=== PATIENT | male | born 1995 | race Asian ===

== ENCOUNTER 2021-01-25 06:00 | Day surgery (SDC) | payer BC, SELFPAY ==
[2021-01-22 09:08] LABS: BASOPHILS % (AUTO) 0.5 % (0.0-2.0); EOSINOPHILS # (AUTO) 0.1 K/uL (0.0-0.4); HEMATOCRIT 44.5 % (36-54); LYMPHOCYTES # (AUTO) 2.8 K/uL (1.0-5.5); LYMPHOCYTES % (AUTO) 38.2 % (20.5-51.5); MEAN CORPUSCULAR HEMOGLOBIN 28 pg (27-31); MEAN CORPUSCULAR HGB CONC 34 % (32-36); MEAN CORPUSCULAR VOLUME 81 fL (79.0-98.0); MONOCYTES # (AUTO) 0.5 K/uL (0.0-1.0); NEUTROPHILS # (AUTO) 3.8 K/uL (1.8-7.7); NEUTROPHILS % (AUTO) 52.3 % (40.0-70.0); PLATELET COUNT (AUTO) 345 K/uL (130-430); RED BLOOD CELL COUNT(AUTO) 5.48 MIL/uL (4.2-6.2); RED CELL DISTRIBUTION WIDTH 13.3 % (9.0-15.0); WHITE BLOOD COUNT (AUTO) 7.2 K/uL (4.8-10.8)
[2021-01-22 09:23] LABS: CALCIUM 9.3 mg/dL (8.4-11.0); CREATININE 0.79 mg/dL (0.55-1.30); POTASSIUM 3.9 mmol/L (3.5-5.1); TOTAL BILIRUBIN 0.4 mg/dL (0.0-1.0)
[2021-01-22 09:33] LABS: INR 0.9 (0.80-1.20); PROTHROMBIN TIME 9.6 SECS (9.5-12.5)
[~2021-01-25] VITALS: Ht 182.9 cm; Wt 102.1 kg
[2021-01-25] MEDS ORDERED: CEFAZOLIN SOD 2 GM in D5W 50 ML IV ONE (07:00)
[2021-01-25] MEDS ORDERED: SEVOFLURANE 15 MIN GAS INH ONE (08:56)
[2021-01-25] MEDS ORDERED: ONDANSETRON HCL 4 MG/2 ML VIAL ONE (08:56)
[2021-01-25] MEDS ORDERED: MIDAZOLAM HCL 5 MG/ML VIAL (VERSED) IV ONE (08:56)
[2021-01-25] MEDS ORDERED: PROPOFOL 200MG/ 20ML VIAL (DIPRIVAN) IV ONE (08:56)
[2021-01-25] MEDS ORDERED: PHENYLEPHRINE HCL 10 MG/ML VIAL (NEOSYNEPHRINE) ONE (08:56)
[2021-01-25] MEDS ORDERED: fentaNYL CITRATE/PF 100 MCG/2 ML AMP ONE (08:56)
[2021-01-25] MEDS ORDERED: GLYCOPYRROLATE 0.2 MG/ML VIAL ONE (08:56)
[2021-01-25] MEDS ORDERED: BUPIVACAINE /PF 0.25% 30 ML VIAL INJ ONE (08:56)
[2021-01-25] MEDS ORDERED: KETOROLAC TROMETHAMINE 30 MG VIAL ONE (08:56)
[2021-01-25] MEDS ORDERED: LR 1,000 ML IV.SOLN IV ONE (08:56)
[2021-01-25] MEDS ORDERED: LIDOCAINE 1% 10 MG/ML, 20 ML MDV ONE (08:56)
[2021-01-25] MEDS ORDERED: METOCLOPRAMIDE HCL 10 MG/2 ML VIAL ONE (08:56)
[2021-01-25] MEDS ORDERED: WATER FOR IRRIGATION,STERILE 1,000 ML IRRIG.SOLN IR ONE (08:56)
[2021-01-25] MEDS ORDERED: LR 1,000 ML IV SCH (09:00)
[2021-01-25] MEDS ORDERED: ONDANSETRON HCL 4 MG/2 ML VIAL IVP PRN (09:00)
[2021-01-25] MEDS ORDERED: HYDROmorphone 2 MG/ML VIAL IVP PRN (09:00)
[2021-01-25] MEDS ORDERED: KETOROLAC TROMETHAMINE 30 MG VIAL IVP PRN (09:00)
[2021-01-25] MEDS ORDERED: HYDROmorphone 1 MG/ML INJ. CARTRIDGE IVP PRN (09:00)
[2021-01-25 10:11] VITALS: BP_SYST 121
== END 2021-01-25 11:00 | disposition home or self-care (01) ==
LOC: SDS 06:00 → SMU 06:00 → SDS 11:00
PROVIDERS: ATTEND Urology
DX: N47.1 Phimosis (principal); Z79.01 Long term (current) use of anticoagulants; Z79.899 Other long term (current) drug therapy; Z20.822 Contact with and (suspected) exposure to COVID-19
CPT/HCPCS: 54164; 71046; 80053; 85025; 85610; 85730; 88304; 88305; 93005; J0690; J1885; J2001; J2250; J2370; J2405; J2704; J2765; J3010; J3490 ×2; J7060; J7120; U0003